=== PATIENT | female | born 1960 | race Caucasian/White ===

== ENCOUNTER 2017-08-18 10:44 | Emergency (ER) | payer OTHER ==
[~2017-08-18] VITALS: Ht 149.9 cm; Wt 50.8 kg
[2017-08-18 11:00] VITALS: BP 140/74
[2017-08-18 11:48] VITALS: BP 135/73
== END 2017-08-18 11:48 | disposition home or self-care (01) ==
LOC: MED 10:44
DX: H60.02 Abscess of left external ear (principal)
CPT/HCPCS: 99283

== ENCOUNTER 2022-04-12 15:36 | Emergency (ER) | payer BC, OTHER ==
[~2022-04-12] VITALS: Ht 149.9 cm; Wt 65.8 kg
[2022-04-12 15:40] VITALS: BP 139/75
--- NOTE | 2022-04-12 15:54 | NUR ---
61/F WALKED IN C/O URINARY FREQUENCY ONSET 1 WK. PT C/O LLQ ABD PAIN. DENIES HEMATURIA OR DYSURIA. DENIES FLANK JEREMIAS. PT REPORTS NAUSEA AND VOMITTING. Hx-denies
[2022-04-12] MEDS ORDERED: KETOROLAC 30 MG/ML VIAL IM ONE (16:00)
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
[2022-04-12 16:17] LABS: BILIRUBIN,URINE NEGATIVE (NEGATIVE); BLOOD, URINE NEGATIVE (NEGATIVE); COLOR,URINE YELLOW (YELLOW); LEUKOCYTE ESTERASE ,URINE 1+ (NEGATIVE); NITRITE, URINE NEGATIVE (NEGATIVE); PH,URINE 5.5 (5.0-9.0); UGLUCOSE NEGATIVE (NEGATIVE)
[2022-04-12 16:21] LABS: APPEARANCE,URINE HAZY (CLEAR)
[2022-04-12 16:33] LABS: RBC,URINE NONE SEEN /HPF (0-5); WBC,URINE 20-60 /HPF (0-5)
[2022-04-12 16:42] LABS: ALBUMIN 4.2 g/dL (3.4-5.0); ANION GAP 13.8 (8-16); CARBON DIOXIDE 26.9 mmol/L (21-32); CREATININE 0.7 mg/dL (0.6-1.3); POTASSIUM 3.7 mmol/L (3.5-5.1); TOTAL BILIRUBIN 0.2 mg/dL (0.0-1.0)
[2022-04-12 16:53] LABS: BASOPHILS % (AUTO) 0.6 % (0.0-2.0); EOSINOPHILS # (AUTO) 0.2 K/uL (0-0.4); EOSINOPHILS % (AUTO) 2.1 % (0.0-4.0); HEMATOCRIT 36.5 % (36-48); HEMOGLOBIN 12.6 g/dL (12.0-16.0); LYMPHOCYTES # (AUTO) 2.2 K/uL (2.5-16.5); LYMPHOCYTES % (AUTO) 28.5 % (20.5-51.1); MEAN CORPUSCULAR HEMOGLOBIN 31 pg (27-31); MEAN CORPUSCULAR HGB CONC 35 g/dL (33-37); MEAN CORPUSCULAR VOLUME 88.9 fL (80-94); MONOCYTES # (AUTO) 0.6 K/uL (0.8-1.0); MONOCYTES % (AUTO) 8.4 % (1.7-9.3); NEUTROPHILS # (AUTO) 4.6 K/uL (1.8-7.7); NEUTROPHILS % (AUTO) 60.4 % (42.2-75.2); PLATELET COUNT (AUTO) 306 K/uL (140-450); RED CELL DISTRIBUTION WIDTH 12.6 % (11.6-13.7); WHITE BLOOD COUNT (AUTO) 7.6 K/uL (4.8-10.8)
[2022-04-12] MEDS ORDERED: METR-435 PO (17:44)
[2022-04-12] MEDS ORDERED: CIPR500T4 PO (17:44)
[2022-04-12 17:50] VITALS: BP 132/68
== END 2022-04-12 17:50 | disposition home or self-care (01) ==
LOC: MED 15:36
DX: K52.9 Noninfective gastroenteritis and colitis, unspecified (principal); K57.92 Diverticulitis of intestine, part unspecified, without perforation or abscess without bleeding; Z79.899 Other long term (current) drug therapy; Z90.710 Acquired absence of both cervix and uterus
CPT/HCPCS: 36415; 74176; 80053; 81001; 83605; 85025; 87086; 96372; 99285; J1885

== ENCOUNTER 2022-05-03 15:41 | Emergency (ER) | payer BC ==
[~2022-05-03] VITALS: Ht 149.9 cm; Wt 64.0 kg
[~2022-05-03 15:41] MED LIST: CIPR500T4 PO; METR-435 PO
[2022-05-03 15:54] VITALS: BP 129/72
[2022-05-03 16:22] LABS: BASOPHILS % (AUTO) 0.3 % (0.0-2.0); EOSINOPHILS # (AUTO) 0.1 K/uL (0-0.4); EOSINOPHILS % (AUTO) 1.5 % (0.0-4.0); HEMATOCRIT 43.7 % (36-48); HEMOGLOBIN 14.8 g/dL (12.0-16.0); LYMPHOCYTES % (AUTO) 23.1 % (20.5-51.1); MEAN CORPUSCULAR HEMOGLOBIN 31 pg (27-31); MEAN CORPUSCULAR HGB CONC 34 g/dL (33-37); MONOCYTES # (AUTO) 0.7 K/uL (0.8-1.0); MONOCYTES % (AUTO) 8.3 % (1.7-9.3); NEUTROPHILS # (AUTO) 5.9 K/uL (1.8-7.7); NEUTROPHILS % (AUTO) 66.8 % (42.2-75.2); PLATELET COUNT (AUTO) 373 K/uL (140-450); WHITE BLOOD COUNT (AUTO) 8.8 K/uL (4.8-10.8)
[2022-05-03 16:56] LABS: ALBUMIN 3.8 g/dL (3.4-5.0); ANION GAP 12.7 (8-16); CARBON DIOXIDE 29.7 mmol/L (21-32); CREATININE 0.7 mg/dL (0.6-1.3); POTASSIUM 4.4 mmol/L (3.5-5.1); TOTAL BILIRUBIN 0.5 mg/dL (0.0-1.0)
[2022-05-03 17:56] LABS: BILIRUBIN,URINE 1+ (NEGATIVE); BLOOD, URINE NEGATIVE (NEGATIVE); COLOR,URINE YELLOW (YELLOW); LEUKOCYTE ESTERASE ,URINE 1+ (NEGATIVE); NITRITE, URINE NEGATIVE (NEGATIVE); UGLUCOSE NEGATIVE (NEGATIVE)
[2022-05-03 18:33] LABS: APPEARANCE,URINE HAZY (CLEAR)
[2022-05-03 18:36] LABS: RBC,URINE NONE SEEN /HPF (0-5); WBC,URINE 20-60 /HPF (0-5)
[2022-05-03] MEDS ORDERED: BEN10 PO (19:40)
[2022-05-03] MEDS ORDERED: CEPH-588 PO (19:40)
[2022-05-03 19:55] VITALS: BP 129/72
--- NOTE | 2022-05-03 19:55 | NUR ---
Patient discharged with v/s stable. Written and verbal after care instructions given and explained. Patient alert, oriented and verbalized understanding of instructions. Ambulatory with steady gait. All questions addressed prior to discharge. ID band removed. Patient advised to follow up with PMD. Rx of KEFLEX AND BENTYL given. Patient educated on indication of medication including possible reaction and side effects. Opportunity to ask questions provided and answered.
== END 2022-05-03 19:55 | disposition home or self-care (01) ==
LOC: MED 15:41
DX: K52.9 Noninfective gastroenteritis and colitis, unspecified (principal); N39.0 Urinary tract infection, site not specified; Z79.899 Other long term (current) drug therapy; Z90.710 Acquired absence of both cervix and uterus; Z98.890 Other specified postprocedural states
CPT/HCPCS: 36415; 80053; 81001; 83690; 85025; 87086; 99284